=== PATIENT | female | born 1950 | race Caucasian/White ===

== ENCOUNTER → 2017-12-06 07:54 | Day surgery (SDC) | payer MEDICARE, SELFPAY ==
[2017-12-03 11:20] LABS: Bacteria 0 SEEN /hpf (None Seen); Mucous, Urine 0 SEEN /hpf (<or=2+); Red Blood Cells-Urine 0 SEEN /hpf (0-5)
--- NOTE | 2017-12-03 11:36 | RAD_ITS ---
STUDY: X-RAY CHEST REASON FOR EXAM: Female, 67 years old. PPM generator change TECHNIQUE: PA and lateral views of the chest. COMPARISON: 09/06/2013 chest x-ray FINDINGS: There is a left-sided pacemaker. There are small surgical clips adjacent to the pacemaker overlying the left axilla/left chest leads overlying right atrium and ventricle. There is no evidence of pneumothorax.. The lungs are clear and expanded. There is no demonstrated pleural abnormality. Normal size heart. Normal mediastinum and prince. Normal visualized pulmonary arteries. There is atherosclerotic calcification of the aortic arch with tortuosity. There are diffuse degenerative changes of the visualized thoracic spine. Normal visualized ribs, clavicles, and shoulders. There is no demonstrated abnormality of the visualized soft tissue structures of the upper abdomen. RAD/Chest PA and Lateral IMPRESSION: Pacemaker no evidence of acute focal infiltrate or pneumothorax. Stable chest other than surgical clips seen in the left chest. Electronically Signed: Betsy Ch MD at 22:18 EST Tel , Service support ,
[2017-12-03 12:24] LABS: Color, Urine Yellow (Yellow); Glucose, Dipstick Normal (Normal); Ketone-Dipstick Negative (Negative); Leukocyte Esterase-Dipstick 100 /ul (Negative); Nitrite-Dipstick Negative (Negative); Occult Blood-Urine Negative /ul (Negative); Protein-Dipstick Negative (Negative); Urine Bilirubin Dipstick Negative (Negative); Urine Clarity Clear (Clear); Urine Urobilinogen Normal (Normal)
[2017-12-03 12:31] LABS: Squamous Epithelial Cells - UA 0-5 SEEN /hpf (5-10); White Blood Cells 10-25 SEEN /hpf (0-5)
[2017-12-03 12:33] LABS: Hematocrit 41.3 % (37-47); Hemoglobin 14.4 g/dl (12.0-15.0); Mean Corp Hgb Conc 34.9 g/gl (32-36); Mean Corpuscular Hgb 30.3 pg (27.0-32.0); Mean Corpuscular Volume 86.8 fL (81-99); Mean Platelet Vol. 9.6 fl (6.2-12.0); Platelet Count 195 K/mm3 (150-450); Prothrombin Time (Protime)PT. 12.9 SECONDS (11.7-14.9); RBC Distribution Width CV 12.5 % (11.6-14.6); RBC Distribution Width SD 39.1 fl (35.1-43.9); Red Blood Count 4.76 M/mm3 (4.2-5.4); White Blood Count 4.6 K/mm3 (4.4-11.0)
[2017-12-03 12:39] LABS: Scan Indicated on CBC? Y/N NO
[2017-12-03 12:50] LABS: Anion Gap 5 (5-15); BUN 18 mg/dL (7-18); BUN/Creat Ratio 27.5 RATIO (10-20); Calcium,Total 9.5 mg/dL (8.5-10.1); Chloride 104 mmol/L (98-107); Creatinine, Serum 0.66 mg/dL (0.55-1.02); EST Glomerular Filtration Rate 96 mL/min (>60); Est Glom Filt Rate - Afr Amer 116 mL/min (>60); Glucose 99 mg/dL (70-110); Sodium Level 140 mmol/L (136-145)
[2017-12-05 09:48] VITALS: BMI 29.0
--- NOTE | 2017-12-06 10:00 | CL.IE_ITS ---
Patient: BETTY HAGER Study Date: 12/06/2017 Performing: Kush Collins MD : 1950 Age: 67 Gender: female PROCEDURES PERFORMED [id number] REMOVAL+REPLACEMENT PACER-DUAL LEAD INDICATIONS End-of-life replacement indicator PROCEDURE DETAILS The patient was brought to the Catheterization Lab in the postabsorptive nonsedated state. Informed consent was obtained prior to the procedure. Local anesthetic was given subcutaneously to the left joiner bclavian region with Lidocaine 2%. Incision was made to the left upper chest. PPM generator was remov ed. PPM atrial lead (existing) was checked and tested. PPM ventricular lead (existing) was checked an d tested. PPM generator was attached to the lead(s) and inserted into the pocket. Device pocket was i rrigated with antibiotic. Steri-strips applied to left subclavicular incision. Instrument, sponge, an d needle counts were noted to be normal. The patient tolerated the procedure well. Estimated Blood Loss: 25 ml's IMPLANTED / EX-PLANTED DEVICES IMPLANTED DEVICE(S): PPM Generator - [employer] Manager: [employer], Model # L111 , Serial # [id number] DEVICE PARAMETERS DEVICE PARAMETERS: Mode - DVD lower rate - 50 upper rate - 150 CONCLUSIONS / RECOMMENDATIONS Device Conclusions: Successful implantation of a dual chamber pacemaker Device Recommendations: Follow up with Primary Care Physician PROCEDURE MEDICATIONS Fentanyl 50 mcg IV Versed 1 mg IV Versed 1 mg IV Oxygen: 2 L/min via nasal cannula Antibiotic given in appropriate timeframe. Ancef 2 Gm IV @ 12/06/2017 08:54:28 Signed By Kush Collins MD On 12/06/2017 09:59:56 Kush Collins MD
== END ==
PROVIDERS: Family Provider Student in an Organized Health Care Education/Training Program; PCP Student in an Organized Health Care Education/Training Program; Visit Provider Internal Medicine Cardiovascular Disease
DX: Z45.010 Encounter for checking and testing of cardiac pacemaker pulse generator [battery] (principal); I47.1 Supraventricular tachycardia; E11.9 Type 2 diabetes mellitus without complications; C50.912 Malignant neoplasm of unspecified site of left female breast; I44.2 Atrioventricular block, complete; Z96.651 Presence of right artificial knee joint; Z79.899 Other long term (current) drug therapy
CPT/HCPCS: 33228; 36415; 71046; 80048; 81001; 85027; 85610; 99152; 99153; J7040; J7050

== ENCOUNTER → 2018-03-13 10:43 | Outpatient (CLI) | payer MEDICARE, SELFPAY ==
--- NOTE | 2018-03-13 10:43 | ECHOD_ITS ---
Reason For Study: TACHYCARDIA Procedure This was a 2D Doppler, Color Flow transthoracic echocardiogram. Exam performed in department. Left Ventricle Normal LV size. Left ventricular systolic function is normal. The estimated ejection fraction is 60 %. No evidence for diastolic dysfunction. No regional wall motion abnormalities noted. Right Ventricle Normal RV size. ICD or pacer leads identified within the right ventricle. Normal systolic function. Atria Normal left atrium. Normal right atrium. Mitral Valve Normal mitral valve. Mild (1+) eccentric mitral valve insufficiency. Tricuspid Valve Normal tricuspid valve. Mild (1+) tricuspid valve insufficiency. Pulmonary artery systolic pressure is 22 mmHg. Aortic Valve Normal aortic valve. Pulmonic Valve Normal pulmonic valve. Great Vessels Normal aortic root. The pulmonary artery is normal size. Normal inferior vena cava. Pericardium/Pleural No pericardial effusion. MMode/2D Measurements & Calculations LVIDd: 4.7 cm IVSd: 0.89 cm Ao root diam: 3.2 cm LVIDs: 3.0 cm LVPWd: 0.94 cm RVDd: 3.3 cm FS: 34.6 % LAV(MOD-bp): 22.2 ml EDV(MOD-sp4): 71.7 ml SV(MOD-sp4): 47.2 ml LAV(MOD-bp) Indexed: 11.6 ml/m2 ESV(MOD-sp4): 24.5 ml LAV(MOD-sp2): 23.1 ml EF(MOD-sp4): 65.9 % LAV(MOD-sp4): 18.3 ml LA A4 area: 9.5 cm2 RA A4 area: 8.8 cm2 Time Measurements MV dec time: 0.24 sec Doppler Measurements & Calculations MV E max morgan: 89.6 cm/sec Lat Peak E' Morgan: 6.5 cm/sec Med Peak E' Morgan: 5.2 cm/sec MV A max morgan: 95.0 cm/sec E/E' lat: 13.7 E/E' med: 17.3 MV E/A: 0.94 Ao V2 max: 113.9 cm/sec LV V1 max: 100.7 cm/sec PA V2 max: 95.4 cm/sec Ao max P.2 mmHg LV V1 max P.1 mmHg TR max morgan: 216.8 cm/sec TR max P.0 mmHg Interpretation Summary Normal LV size. Left ventricular systolic function is normal. The estimated ejection fraction is 60 %. No evidence for diastolic dysfunction. Mild (1+) eccentric mitral valve insufficiency. Mild (1+) tricuspid valve insufficiency. Ordering Physician: Kush Collins Referring Physician: GLEN NESS Performed By: Betsy Sterling RDCS
== END ==
PROVIDERS: Family Provider Student in an Organized Health Care Education/Training Program; PCP Student in an Organized Health Care Education/Training Program; Visit Provider Internal Medicine Cardiovascular Disease
DX: I47.1 Supraventricular tachycardia (principal)
CPT/HCPCS: 93306

== ENCOUNTER → 2018-08-15 10:10 | Outpatient (CLI) | payer MEDICARE, SELFPAY ==
--- NOTE | 2018-08-15 10:45 | MRI_ITS ---
STUDY: MRI LEFT FOREFOOT WITHOUT CONTRAST REASON FOR EXAM: Female, 67 years old. Pain. Fall one month ago. Plantar plate tear. TECHNIQUE: Standardized fat and water weighted pulse sequences were obtained in all 3 orthogonal planes. COMPARISON: None. FINDINGS: There is degenerative arthrosis of the metatarsophalangeal joint of the hallux. There is a bipartite tibial sesamoid. Normal interphalangeal joint of the hallux. Normal proximal and distal phalanges of the great toe. Normal medial and lateral heads of the flexor hallucis brevis tendons. Normal flexor and extensor hallucis longus tendons. There is heterogeneous signal with partial plantar plate tear at the third and fourth metatarsophalangeal (MTP) joints, series 5 and 6 images 19/36 and 21/36. Normal interphalangeal joints of the second through fifth toes. Marrow edema with nondisplaced fractures of the base of the third and fourth proximal phalanges, series 7 image 15/32. Marrow edema in the third and fourth metatarsal head. Normal first through fourth intermetatarsal spaces. Normal flexor and extensor tendons of the second through fifth toes. Normal intrinsic muscles of the forefoot. There is no demonstrated soft tissue mass or fluid collection. MRI/Lower Ext/No Jt/w/o IMPRESSION: Nondisplaced fractures of the base of the third and fourth proximal phalanges. Bone bruising of the third and fourth metatarsal heads. Partial plantar plate tear at the third and fourth MTP joints. Electronically Signed: Humberto Everett MD at 12:33 EDT , Service support ,
== END ==
PROVIDERS: Family Provider Student in an Organized Health Care Education/Training Program; PCP Student in an Organized Health Care Education/Training Program; Visit Provider Podiatrist Foot & Ankle Surgery
DX: S92.902A Unspecified fracture of left foot, initial encounter for closed fracture (principal)
CPT/HCPCS: 73718

== ENCOUNTER → 2020-01-29 09:12 | Outpatient (CLI) | payer MEDICARE, SELFPAY ==
[2020-01-29 09:07] VITALS: BMI 29.0
--- NOTE | 2020-01-29 09:12 | RAD_ITS ---
STUDY: X-RAY CHEST REASON FOR EXAM: Female, 69 years old. EPISODE DYSPNEA THIS MORNING, COUGH X COUPLE MONTHS TECHNIQUE: PA and lateral views of the chest. COMPARISON: Comparison is made with prior examination dated December 03, 2017. FINDINGS: Surgical clips are seen in the left axillary region. The lungs are clear and expanded. Scattered calcified granulomas. There is no demonstrated pleural abnormality. Normal size heart. A left-sided dual-chamber pacemaker is seen. Normal mediastinum and prince. Normal visualized pulmonary arteries. There is atherosclerotic calcification of the aortic arch with tortuosity. There are diffuse degenerative changes of the visualized thoracic spine. Normal visualized ribs, clavicles, and shoulders. There is no demonstrated abnormality of the visualized soft tissue structures of the upper abdomen. RAD/Chest PA and Lateral IMPRESSION: No acute abnormality is seen. Electronically Signed: Nikita Gonzales, at 9:45 EST , Service support ,
== END ==
PROVIDERS: PCP Student in an Organized Health Care Education/Training Program; Referring Provider Physician Assistant Surgical; Visit Provider Physician Assistant Surgical
DX: J20.9 Acute bronchitis, unspecified (principal)
CPT/HCPCS: 71046

== ENCOUNTER → 2020-09-21 08:22 | Outpatient (CLI) | payer MEDICARE, SELFPAY ==
[2020-07-05 14:48] VITALS: BMI 29.0
--- NOTE | 2020-09-21 08:27 | RAD_ITS ---
STUDY: X-RAY - ESOPHAGUS (BARIUM SWALLOW) WITH FLUOROSCOPY REASON FOR EXAM: Female, 69 years old. COUGH WITH FOOD AND WATER, DIFFICULTY SWALLOWING PILLS. TECHNIQUE: 12 view(s) of the esophagus were obtained following swallowing of barium. FLUOROSCOPY TIME (if supplied): (0:30) minutes/seconds COMPARISON: None. FINDINGS: There is no demonstrated esophageal foreign body. Tertiary contractions of the distal portion of the esophagus. Normal gastroesophageal junction, without a demonstrated hiatal hernia. The patient ingested a 12 mm tablet at bedtime without any difficulty. There is atherosclerotic tortuosity of the aortic arch and descending thoracic aorta. Normal visualized pulmonary parenchyma. Normal visualized osseous structures of the thorax. RAD/Esophagus Single Contrast IMPRESSION: Tertiary contractions in the distal third of the esophagus. Electronically Signed: Nikita Gonzales, at 15:40 EDT , Service support ,
== END ==
PROVIDERS: PCP Student in an Organized Health Care Education/Training Program; Referring Provider Nurse Practitioner Adult Health; Visit Provider Nurse Practitioner Adult Health
DX: R05 Cough (principal)
CPT/HCPCS: 74220

== ENCOUNTER 2020-09-29 05:29 | Day surgery (SDC) | payer MEDICARE, SELFPAY ==
[2020-09-22 08:54] VITALS: BMI 28.2
[2020-09-29] VITALS (7 sets, daily range): BP systolic 120–142; BP diastolic 59–79; PULSE 66–76; RESP 16–18; TEMP 36.1–36.7; O2SAT 95–100; BMI 27.7
--- NOTE | 2020-09-29 05:54 | PCM.HP.BLA ---
Problem List (1) Gastroesophageal reflux disease Status: Acute Qualifiers: (2) Diverticulitis Status: Acute History and Physical Date of Admission: 09/29/20 Intake Visit Reasons: ABDOMINAL CRAMPING/ CT 09/13 Chief Complaint: Lower abdominal pain and dysphagia Blender Helper Required: No Is patient in pain?: No (lower abdominal pain on/off) Allergies theophylline Allergy (Verified 09/22/20 08:54) Swelling fexofenadine [From [place]] Adverse Reaction (Verified 09/22/20 08:54) Other Medications calcium polycarbophil 625 mg tablet 1,250 mg PO QDAY 12/02/17 [History Confirmed 07/05/20] omega-3 fatty acids 1,000 mg capsule 1,000 mg PO DAILY 02/26/19 [History Confirmed 09/22/20] cyanocobalamin (vitamin B-12) 1,000 mcg capsule 1,000 mcg PO DAILY 07/05/20 [History Confirmed 09/22/20] pyridoxine (vitamin B6) 50 mg tablet 50 mg PO DAILY 07/05/20 [History Confirmed 09/22/20] zinc acetate 50 mg (zinc) capsule 50 mg PO DAILY 07/05/20 [History Confirmed 09/22/20] amoxicillin 875 mg-potassium clavulanate 125 mg tablet 1 tab PO BID tab 09/22/20 [History Confirmed 09/22/20] [facility] Medical History (Updated 09/22/20 @ 10:[address] Nahid Earl MD) Diverticulitis (Acute) Constipation (Acute) Hemorrhoids (Acute) Nausea (Acute) Cough (Acute) Fatigue (Acute) Hx of breast cancer (Acute) Dysphagia (Acute) Lower abdominal pain (Acute) Scoliosis (Acute) Type 2 diabetes mellitus (Chronic) Segmental and somatic dysfunction of thoracic region (Chronic) Segmental and somatic dysfunction of lumbar region (Chronic) Segmental and somatic dysfunction of cervical region (Chronic) Degenerative disc disease, cervical (Chronic) Arthritis (Chronic) History of hemorrhoids (Chronic) Heart disease (Chronic) Knee pain (Chronic) Back pain (Chronic) Back pain (Chronic) Segmental and somatic dysfunction of lumbar region (Acute) Segmental and somatic dysfunction of thoracic region (Acute) Segmental and somatic dysfunction of cervical region (Acute) DDD (degenerative disc disease), cervical (Chronic) Back pain (Acute) Complete heart block (Chronic) Paroxysmal SVT (supraventricular tachycardia) (Resolved) Carcinoma of left breast (Chronic 2012) Pacemaker at end of battery life (Resolved) Palpitations (Resolved) Surgical History (Updated 09/22/20 @ 08:52 by Sheri Khan) Hx of colonoscopy (Acute) History of tonsillectomy (Chronic) History of cardiac radiofrequency ablation (Chronic 12/08/01) History of tubal ligation (Chronic) History of lumpectomy of left breast (Chronic) History of permanent cardiac pacemaker placement (Chronic 12/06/17) Family History (Updated 09/22/20 @ 08:53 by Sheri Khan) Father Diabetes Kidney disease Heart disease Mother Diabetes Arthritis Thyroid disorder Brother Diabetes Sister Diabetes Arthritis Seizures Social History (Updated 09/22/20 @ 10:[address] Nahid Earl MD) Smoking Status: Former smoker quit date: 12/17/79 how long ago did patient quit smokin12/17/1979 second hand exposure: No alcohol intake: current alcohol intake frequency: 0-2 drinks per day Alcohol type: beer, wine substance use type: does not use caffeine: Yes what type of physical activity do you participate in: walking, bicycling, aerobics, weight training frequency: 3-4 times per week duration: 15-30 minutes/day seatbelt use: always do you feel safe at home: Yes HPI HPI HPI: BETTY HAGER, is a 70 F who presents to the office today for surgical consultation actually regarding a variety of GI issues. The patient is referred by Jeanette Romero CNP and a written copy of my surgical consult and recommendations were returned to her as well as forwarded on to Dr. Richard Castillo. 70-year-old female. Since August 11 she has had crampy abdominal pain particularly in the low abdomen. She also over a much longer period of time has had problems with what sounds like reflux and a chronic cough. Apparently this becomes quite severe postprandially. She is at this point interested in additional evaluation and management. I have previously assisted her December 01, 2010 with a colonoscopy done for rectal bleeding. That was unremarkable at that time. September 21, 2020 as noted below she had a esophagram [facility] suggesting tertiary contractions. A hiatal hernia was not felt to be demonstrated. However September 13, 2020 at the [facility] she had a CT scan of the abdomen to evaluate her crampy abdominal pain. Findings suggested probable sigmoid diverticulitis however could not exclude colitis or neoplasm and follow-up colonoscopy was recommended. She was noted to have cholelithiasis and a hiatal hernia and fecal retention on the study as well. The patient states she was initially prescribed ciprofloxacin metronidazole however upon reading the side effects of Cipro she declined that medication. She suggests she was then prescribed amoxicillin as a replacement. She states that she has been taking that for approximately 5 days and fortunately there is improvement in her crampy abdominal pain and left lower quadrant pressure sensation. She currently denies bright red blood per rectum or melena. She has not noticed any fever chills cough shortness of breath. She denies any history of DVT. [facility] Imaging Services [address] [place] [address] Esophagus Single Contrast MR#: [id number]:[id number] Name: Madina HAGER #:[id number] : 1950F [id number] From: Nikita Gonzales MD PCP:Dr. Richard Castillo, DO Status:REG CLI Study:Esophagus Single Contrast Date of Exam:09/21/20 Exam#[id number] Ordering Dr: Patricia Romero PERSONAL INJURY PARALEGAL PERSONAL INJURY PARALEGAL-C STUDY: X-RAY - ESOPHAGUS (BARIUM SWALLOW) WITH FLUOROSCOPY REASON FOR EXAM: Female, 69 years old. COUGH WITH FOOD AND WATER, DIFFICULTY SWALLOWING PILLS. TECHNIQUE: 12 view(s) of the esophagus were obtained following swallowing of barium. FLUOROSCOPY TIME (if supplied): (0:30) minutes/seconds COMPARISON: None. FINDINGS: There is no demonstrated esophageal foreign body. Tertiary contractions of the distal portion of the esophagus. Normal gastroesophageal junction, without a demonstrated hiatal hernia. The patient ingested a 12 mm tablet at bedtime without any difficulty. There is atherosclerotic tortuosity of the aortic arch and descending thoracic aorta. Normal visualized pulmonary parenchyma. Normal visualized osseous structures of the thorax. RAD/Esophagus Single Contrast IMPRESSION: Tertiary contractions in the distal third of the esophagus. Electronically Signed: Nikita Gonzales, at 15:40 EDT , Service support , HPI HPI HPI: BETTY HAGER, is a 70 F who presents to the office today for ROS General General: Yes fatigue and breast cancer; no weight change, appetite, colon cancer or weakness HEENT HEENT: Yes difficulty swallowing; no eye injury, eye surgery, swollen glands or hoarseness Endo Endocrine: Yes diabetes mellitus; no thyroid disease, thyroid cancer, Hair loss, heat intolerance or cold intolerance Skin Skin: No rash or changing moles Musc Musculoskeletal: Yes back problems and arthritis; no rheumatoid arthritis, gout or joint pain Cardio Cardiovascular: Yes pacemaker and heart disease; no murmur, atrial fibrillation, high blood pressure, heart attack, heart stent, palpitations, shortness of breat with exertion or chest pain Psych Psychiatric: No depression, anxiety or hearing voices Resp Respiratory: No shortness of breath, No sleep apnea, Yes cough, No COPD, No asthma, No emphysema, No wheezing Gastro Gastrointestinal: Yes abdominal pain, Yes nausea or vomiting, No diarrhea, No constipation, No blood in stool, No acid reflux, Yes hemorrhoids, No ulcers, No gallbladder problem, No black,tarry stools Gilberto Hematologic: No blood thinners, No blood disorders, No bleeding, No anemia, No blood clots Neuro Neurologic: No system reviewed and no additional complaints, except as docu, No as per HPI, No abnormal walking, No abnormal hearing, No abnormal movements, No abnormal speech, No behavioral changes, No burning sensations, No confusion, No seizure-like activity, No unsteadiness, No dizziness, No localized weakness, No frequent falls, No headache(s), No lack of coordination, No loss of vision, No memory loss, Yes numbness, No other visual disturbances, No radiating pain, No restless legs, No sensory deficit, No fainting, Yes tingling, No tremor(s), No weakness, No other Exam Const General: cooperative, healthy appearing, comfortable, no acute distress Nutritional Appearance: average body habitus Orientation: alert, awake [facility] Head: normal to inspection Eyes General: appearance normal, both eyes and all related structures Chest Chest palpation & inspection: normal inspection of the chest Resp Effort & Inspection: normal respiratory effort Auscultation: clear to auscultation bilaterally Cardio Rate: regular rate Rhythm: regular rhythm Heart Sounds: no murmurs GI Palpation: soft, no hepatosplenomegaly Auscultation: normal bowel sounds Musc Cervical Spine: normal cervical lordosis Skin General: no rashes or lesions noted Neuro Cognition: normal cognition Extrem General: no calf tenderness Psych Affect: normal affect Assessment & Plan Problems 1. Diverticulitis K57.92 2. Gastroesophageal reflux disease, unspecified whether esophagitis present K21.9 Plan 2 separate issues today at hand. 1 is a much more long-term history of coughing and postprandial exacerbation of symptoms. A barium swallow suggest tertiary contractions of the esophagus without hiatal hernia however a CT scan demonstrates hiatal hernia. I suspect that this 70-year-old female has had chronic hiatal hernia and reflux issues causing her chronic coughing symptoms. She may very well be a candidate for surgical intervention. I propose for her a esophagogastroduodenoscopy with biopsy or polypectomy as indicated. I additionally recommend to her esophageal manometry. This is in part based upon her esophagram suggesting tertiary contractions. Moreover it would be beneficial to considering whether she would have surgical treatment options. I recommended the patient a colonoscopy with possible biopsy or polypectomy as indicated. Concern is that she has diverticulitis or focal colitis though of course malignancy cannot be excluded. She is currently 5 days into her oral antibiotic with improvement. We will schedule the a combined upper and lower procedure approximately 2 weeks out allowing her further time to resolve. She has had an opportunity to ask and have questions answered. I very much appreciate the kind opportunity of us assisting with her surgical care. Copy: Patricia Romero CNP and Dr. Richard Earl M.D., F.A.C.S. Orders Orders: Colonoscopy Today EGD Today Esophageal Manometry Today K21.9, K44.9 Plan Detail Goals Decrease pain and spasm Decrease inflammation Barriers Scoliosis Coding Level of Care Code 71726 Diagnoses Diverticulitis K57.92 Gastroesophageal reflux disease, unspecified whether esophagitis present K21.9 ??Esophagitis presence: esophagitis presence not specified I have re-examined the patient. There are no clinical changes since date of exam. Procedure Criteria Procedure Type: Elective COVID Risk Discussion: The surgeon/proceduralist and patient have discussed in detail the risk of exposure to and/or potential harm posed by the COVID-19 virus with having a surgery/procedure at this time versus the risk of delaying the surgery/procedure. It is not possible to know either the risk of delaying the surgery or procedure or chance of getting an infection with perfect accuracy, but a joint decision was made between the patient and the surgeon/proceduralist to proceed at this time with the scheduled surgery/procedure as indicated on the consent form.
[2020-09-29] MEDS: Lactated Ringers 1,000 ML 100 ML IV (06:02)
--- NOTE | 2020-09-29 06:30 | EGD_PTH ---
PATIENT: BETTY HAGER LOC: [facility] U#:[id number] AGE/SX: 70/F ROOM: RE09/29/[address]: Dr. Nahid Earl MD : 1950 BED: DIS: 09/29/2020 SPEC #: [id number] RECD: 09/29/20 08:21 STATUS: ILDA REGaurav #: [id number] PATRICK: 09/29/20 06:[address]: Nahid Earl DEPT: SURGICAL PATHOLOGY RECD BY: Yadi Smith ENTERED: 09/29/20 09:00 SP TYPE: EGD BIOPSY OTHR DR: Dr. Richard Castillo DO Tissues: A - Duodenum, NOS B - Gastric mucous membrane C - Gastric mucous membrane D - Transverse colon E - Transverse colon F - Sigmoid colon biopsy Procedures: Special Stain Group II Surgery Specimen Level IV Alcian Blue/PAS (control) HEADER OPERATION: Colonoscopy, EGD ([facility] [place]) PRE-OP DIAGNOSIS: Diverticulitis, GERD, esophagitis TISSUE SUBMITTED: A - Duodenum biopsy, B - Antrum biopsy for histo and H. pylori, C - EG junction biopsy, D - Proximal transverse polyp biopsy, E - Mid transverse polyp biopsy, F - Mid sigmoid swollen mucosa biopsy MICROSCOPIC DIAGNOSIS A. Duodenum, biopsy: A fragment of small intestinal mucosa, no pathologic diagnosis. B. Antrum, biopsy: Mild gastritis. See microscopic description and comment. C. EG junction, biopsy: Fragments of gastroesophageal mucosa with moderate chronic inflammation and changes consistent with gastroesophageal reflux disease. Intestinal metaplasia (goblet cell metaplasia) is not identified. See comment. D. Proximal transverse colon polyp, biopsy: Fragments of colonic mucosa with focal tubular adenomatous changes. E. Mid transverse colon polyp, biopsy: Hyperplastic polyp. F. Mid sigmoid swollen mucosa, biopsy: Fragments of colonic mucosa, no pathologic diagnosis. SJ:bernarda 09/30/20 COMMENT B. The results of immunohistochemistry for Helicobacter pylori will be reported separately ([id number]). C. Alcian blue/PAS stain with matched control is used in the evaluation of the specimen. MICROSCOPIC DESCRIPTION Slides are reviewed. B. The specimen shows fragments of gastric mucosa with chronic inflammatory cell infiltrates in the lamina propria consisting of lymphocytes and plasma cells, consistent with mild chronic gastritis. GROSS DESCRIPTION A - Received in fixative is one container labeled with the patient's name and designated duodenum biopsy. The specimen consists of one irregular fragment of light colindres soft tissue that measures 0.2 x 0.2 x 0.1 cm. The specimen is totally submitted in one cassette. B - Received in fixative is one container labeled with the patient's name and designated antrum biopsy. The specimen consists of one irregular fragment of light colindres soft tissue that measures 0.6 x 0.2 x 0.1 cm. The specimen is totally submitted in one cassette. C - Received in fixative is one container labeled with the patient's name and designated EG junction. The specimen consists of multiple irregular fragments of light colindres soft tissue that in aggregate measure 1.2 x 0.2 x 0.1 cm. The specimen is totally submitted in one cassette. D - Received in fixative is one container labeled with the patient's name and designated proximal transverse. The specimen consists of two irregular fragments of light colindres soft tissue that in aggregate measure 0.5 x 0.3 x 0.1 cm. The specimen is totally submitted in one cassette. E - Received in fixative is one container labeled with the patient's name and designated mid transverse. The specimen consists of one irregular fragment of light colindres soft tissue that measures 0.3 x 0.3 x 0.3 cm. The specimen is totally submitted in one cassette. F - Received in fixative is one container labeled with the patient's name and designated mid sigmoid swollen mucosa biopsy. The specimen consists of two irregular fragments of light colindres soft tissue that in aggregate measure 0.7 x 0.6 x 0.1 cm. The specimen is totally submitted in one cassette. / AM:bernarda 09/29/20 TC:3 CPT: 47997 x6, 77385
--- NOTE | 2020-09-29 06:30 | IMM_PTH ---
PATIENT: BETTY HAGER LOC: [facility] U#:[id number] AGE/SX: 70/F ROOM: RE09/29/[address]: Dr. Nahid Earl MD : 1950 BED: DIS: 09/29/2020 SPEC #: [id number] RECD: 09/29/20 09:34 STATUS: ILDA REQ #: [id number] PATRICK: 09/29/20 06:[address]: Nahid Earl DEPT: IMMUNOHISTOCHEMISTRY RECD BY: Sabine Hall ENTERED: 09/29/20 09:35 SP TYPE: IMMUNO OTHR DR: Dr. Richard Castillo DO Tissues: B - Stomach, NOS Procedures: H Pylori (initial) PHYSICIAN & INSTITUTION [place] [address] SPECIMEN INFORMATION: Tissue Source: B - Antrum biopsy Clinical Info: GERD, diverticulitis, esophagitis Specimen Number: [id number] CPT code: 74408 METHODOLOGY: Deparaffinized sections of prefer/formalin-fixed tissue or PAP/DQ stained slides are incubated with monoclonal/polyclonal antibodies/oligonucleotide probes. Localization is made via biotin free immunoperoxidase method. Appropriate controls are performed and reacted as expected. Results on target cell population are indicated in the following table: RESULTS: ANTIBODY / CLONE RESULT Block B H Pylori (polyclonal) negative These tests were developed and their performance characteristics determined by [facility]. They may not have been cleared or approved by the U.S. Food and Drug Administration. The FDA has determined that such clearance or approval is not necessary. INTERPRETATION: B. Antrum biopsy: Negative for Helicobacter pylori organisms. SJ:bernarda 09/30/20
--- NOTE | 2020-09-29 06:30 | EGD_PTH ---
PATIENT: BETTY HAGER LOC: [facility] U#:[id number] AGE/SX: 70/F ROOM: RE09/29/[address]: Dr. Nahid Earl MD : 1950 BED: DIS: 09/29/2020 SPEC #: [id number] RECD: 09/29/20 08:21 STATUS: ILDA REGaurav #: [id number] PATRICK: 09/29/20 06:[address]: Nahid Earl DEPT: SURGICAL PATHOLOGY RECD BY: Yadi Smith ENTERED: 09/29/20 09:00 SP TYPE: EGD BIOPSY OTHR DR: Dr. Richard Castillo DO Tissues: A - Duodenum, NOS B - Gastric mucous membrane C - Gastric mucous membrane D - Transverse colon E - Transverse colon F - Sigmoid colon biopsy Procedures: Special Stain Group II Surgery Specimen Level IV Alcian Blue/PAS (control) HEADER OPERATION: Colonoscopy, EGD ([facility] [place] PRE-OP DIAGNOSIS: Diverticulitis, GERD, esophagitis TISSUE SUBMITTED: A - Duodenum biopsy, B - Antrum biopsy for histo and H. pylori, C - EG junction biopsy, D - Proximal transverse polyp biopsy, E - Mid transverse polyp biopsy, F - Mid sigmoid swollen mucosa biopsy MICROSCOPIC DIAGNOSIS A. Duodenum, biopsy: A fragment of small intestinal mucosa, no pathologic diagnosis. B. Antrum, biopsy: Mild gastritis. See microscopic description and comment. C. EG junction, biopsy: Fragments of gastroesophageal mucosa with moderate chronic inflammation and changes consistent with gastroesophageal reflux disease. Focal intestinal metaplasia (goblet cell metaplasia) noted. Negative for dysplasia. See comment. D. Proximal transverse colon polyp, biopsy: Fragments of colonic mucosa with focal tubular adenomatous changes. E. Mid transverse colon polyp, biopsy: Hyperplastic polyp. F. Mid sigmoid swollen mucosa, biopsy: Fragments of colonic mucosa, no pathologic diagnosis. SJ:bernarda 09/30/20 SJ:bernarda 10/11/20 COMMENT B. The results of immunohistochemistry for Helicobacter pylori will be reported separately ([id number]). C. Alcian blue/PAS stain with matched control is used in the evaluation of the specimen. Case has been reviewed in consultation with Dr. Alonzo who concurs with the above diagnosis. IDC:AM MICROSCOPIC DESCRIPTION Slides are reviewed. B. The specimen shows fragments of gastric mucosa with chronic inflammatory cell infiltrates in the lamina propria consisting of lymphocytes and plasma cells, consistent with mild chronic gastritis. GROSS DESCRIPTION A - Received in fixative is one container labeled with the patient's name and designated duodenum biopsy. The specimen consists of one irregular fragment of light colindres soft tissue that measures 0.2 x 0.2 x 0.1 cm. The specimen is totally submitted in one cassette. B - Received in fixative is one container labeled with the patient's name and designated antrum biopsy. The specimen consists of one irregular fragment of light colindres soft tissue that measures 0.6 x 0.2 x 0.1 cm. The specimen is totally submitted in one cassette. C - Received in fixative is one container labeled with the patient's name and designated EG junction. The specimen consists of multiple irregular fragments of light colindres soft tissue that in aggregate measure 1.2 x 0.2 x 0.1 cm. The specimen is totally submitted in one cassette. D - Received in fixative is one container labeled with the patient's name and designated proximal transverse. The specimen consists of two irregular fragments of light colindres soft tissue that in aggregate measure 0.5 x 0.3 x 0.1 cm. The specimen is totally submitted in one cassette. E - Received in fixative is one container labeled with the patient's name and designated mid transverse. The specimen consists of one irregular fragment of light colindres soft tissue that measures 0.3 x 0.3 x 0.3 cm. The specimen is totally submitted in one cassette. F - Received in fixative is one container labeled with the patient's name and designated mid sigmoid swollen mucosa biopsy. The specimen consists of two irregular fragments of light colindres soft tissue that in aggregate measure 0.7 x 0.6 x 0.1 cm. The specimen is totally submitted in one cassette. / AM:bernarda 09/29/20 TC:3 CPT: 98367 x6, 02215
--- NOTE | 2020-09-29 07:09 | OP.CCLET_ITS ---
09/29/2020 Richard Castillo [address] [place] [phone] Re : Upper GI endoscopy procedure for Fauzia Pierre Dear Dr. Castillo This procedure was performed on September. My impressions and recommendations are as follows: Impressions : - Z-line irregular, 38 cm from the incisors. Biopsied. - LA Grade A reflux esophagitis. - Medium-sized hiatal hernia. - Normal stomach. Antrum Biopsied. - Normal examined duodenum. Biopsied. Recommendations : - Discharge patient to home. - Resume previous diet. - Continue present medications. - Use Prilosec (omeprazole) 40 mg PO daily. - Return to my office as previously scheduled. After manometry My findings are described in the full procedure note, which is enclosed. If I can be of further assistance, please feel free to contact me at Doctor phone number(s): Work: . Sincerely, Nahid Earl MD 09/29/2020 7:09:26 AM This report has been signed electronically.
--- NOTE | 2020-09-29 07:09 | OP.EGD_ITS ---
Patient Name: Fauzia Pierre Procedure Date: 09/29/2020 6:15 AM Date of : 1950 Age: 70 Procedure: Upper GI endoscopy Indications: Suspected gastro-esophageal reflux disease Providers: Nahid Earl MD Referring MD: Richard Castillo Medicines: See the Anesthesia note for documentation of the administered medications Complications: No immediate complications. Procedure: Pre-Anesthesia Assessment: - Prior to the procedure, a History and Physical was performed, and patient medications and allergies were reviewed. The patient's tolerance of previous anesthesia was also reviewed. The risks and benefits of the procedure and the sedation options and risks were discussed with the patient. All questions were answered, and informed consent was obtained. Prior Anticoagulants: The patient has taken no previous anticoagulant or antiplatelet agents. ASA Grade Assessment: II - A patient with mild systemic disease. After reviewing the risks and benefits, the patient was deemed in satisfactory condition to undergo the procedure. After obtaining informed consent, the endoscope was passed under direct vision. Throughout the procedure, the patient's blood pressure, pulse, and oxygen saturations were monitored continuously. The gastroscope was introduced through the mouth, and advanced to the second part of duodenum. The upper GI endoscopy was accomplished without difficulty. The patient tolerated the procedure well. Scope In: 6:29:56 AM Scope Out: 6:34:47 AM Total Procedure Duration Time 0 hours 4 minutes 51 seconds Findings: The Z-line was irregular and was found 38 cm from the incisors. Biopsies were taken with a cold forceps for histology. LA Grade A (one or more mucosal breaks less than 5 mm, not extending between tops of 2 mucosal folds) esophagitis with no bleeding was found 38 cm from the incisors. A medium-sized hiatal hernia was present. The entire examined stomach was normal. Biopsies were taken with a cold forceps for histology. The examined duodenum was normal. Biopsies were taken with a cold forceps for histology. Impression: - Z-line irregular, 38 cm from the incisors. Biopsied. - LA Grade A reflux esophagitis. - Medium-sized hiatal hernia. - Normal stomach. Antrum Biopsied. - Normal examined duodenum. Biopsied. Recommendation: - Discharge patient to home. - Resume previous diet. - Continue present medications. - Use Prilosec (omeprazole) 40 mg PO daily. - Return to my office as previously scheduled. After manometry Procedure Code(s): --- Professional --- 23771, Esophagogastroduodenoscopy, flexible, transoral; with biopsy, single or multiple Diagnosis Code(s): --- Professional --- K22.8, Other specified diseases of esophagus K21.0, Gastro-esophageal reflux disease with esophagitis K44.9, Diaphragmatic hernia without obstruction or gangrene CPT copyright 2017 [employer]. All rights reserved. The codes documented in this report are preliminary and upon aircraft structure mechanic review may be revised to meet current compliance requirements. Nahid Earl MD 09/29/2020 7:09:26 AM This report has been signed electronically. Number of Addenda: 0 Note Initiated On: 09/29/2020 6:15 AM
--- NOTE | 2020-09-29 07:15 | OP.CCLET_ITS ---
09/29/2020 Richard Castillo [address] [phone] Re : Colonoscopy procedure for Fauzia Pierre Dear Dr. Castillo This procedure was performed on September. My impressions and recommendations are as follows: Impressions : - Non-thrombosed internal hemorrhoids and internal hemorrhoids that prolapse with straining, but require manual replacement into the anal canal (Grade III) found on digital rectal exam. - One 4 mm polyp in the proximal transverse colon, removed with a cold biopsy forceps. Resected and retrieved. - One 4 mm polyp in the mid transverse colon, removed with a cold biopsy forceps. Resected and retrieved. - Diverticulosis in the sigmoid colon and in the descending colon. Slight swelling noted. Biopsied. - Tortuous colon. Recommendations : - Discharge patient to home. - Resume previous diet. - Continue present medications. - Repeat colonoscopy in 5 years for surveillance based on pathology results. - Return to my office as previously scheduled. My findings are described in the full procedure note, which is enclosed. If I can be of further assistance, please feel free to contact me at Doctor phone number(s): Work: . Sincerely, Nahid Earl MD 09/29/2020 7:14:46 AM This report has been signed electronically.
--- NOTE | 2020-09-29 07:15 | OP.COLON_ITS ---
Patient Name: Fauzia Pierre Procedure Date: 09/29/2020 6:35 AM Date of : 1950 Age: 70 Procedure: Colonoscopy Indications: Abdominal pain in the left lower quadrant, Abnormal CT of the GI tract Providers: Nahid Earl MD Referring MD: Richard Castillo Medicines: See the Anesthesia note for documentation of the administered medications Patient Profile: Last Colonoscopy: November 2010. Complications: No immediate complications. Procedure: Pre-Anesthesia Assessment: - Prior to the procedure, a History and Physical was performed, and patient medications and allergies were reviewed. The patient's tolerance of previous anesthesia was also reviewed. The risks and benefits of the procedure and the sedation options and risks were discussed with the patient. All questions were answered, and informed consent was obtained. Prior Anticoagulants: The patient has taken no previous anticoagulant or antiplatelet agents. ASA Grade Assessment: II - A patient with mild systemic disease. After reviewing the risks and benefits, the patient was deemed in satisfactory condition to undergo the procedure. After I obtained informed consent, the scope was passed under direct vision. Throughout the procedure, the patient's blood pressure, pulse, and oxygen saturations were monitored continuously. The Colonoscope was introduced through the anus and advanced to the cecum, identified by appendiceal orifice and ileocecal valve. The colonoscopy was somewhat difficult due to a tortuous colon. The patient tolerated the procedure well. The quality of the bowel preparation was good. The ileocecal valve and the appendiceal orifice were photographed. Scope In: 6:37:34 AM Scope Withdrawal Time 0 hours 14 minutes 14 seconds Scope Out: 7:00:13 AM Total Procedure Duration Time 0 hours 22 minutes 39 seconds Findings: The digital rectal exam findings include non-thrombosed internal hemorrhoids and internal hemorrhoids that prolapse with straining, but require manual replacement into the anal canal (Grade III). A 4 mm polyp was found in the proximal transverse colon. The polyp was sessile. The polyp was removed with a cold biopsy forceps. Resection and retrieval were complete. A 4 mm polyp was found in the mid transverse colon. The polyp was sessile. The polyp was removed with a cold biopsy forceps. Resection and retrieval were complete. Multiple diverticula were found in the sigmoid colon and descending colon. Biopsies were taken with a cold forceps for histology. The colon (entire examined portion) was significantly tortuous. Advancing the scope required changing the patient to a supine position and applying abdominal pressure. Impression: - Non-thrombosed internal hemorrhoids and internal hemorrhoids that prolapse with straining, but require manual replacement into the anal canal (Grade III) found on digital rectal exam. - One 4 mm polyp in the proximal transverse colon, removed with a cold biopsy forceps. Resected and retrieved. - One 4 mm polyp in the mid transverse colon, removed with a cold biopsy forceps. Resected and retrieved. - Diverticulosis in the sigmoid colon and in the descending colon. Slight swelling noted. Biopsied. - Tortuous colon. Recommendation: - Discharge patient to home. - Resume previous diet. - Continue present medications. - Repeat colonoscopy in 5 years for surveillance based on pathology results. - Return to my office as previously scheduled. Procedure Code(s): --- Professional --- 46772, Colonoscopy, flexible; with biopsy, single or multiple Diagnosis Code(s): --- Professional --- K64.2, Third degree hemorrhoids D12.3, Benign neoplasm of transverse colon (hepatic flexure or splenic flexure) R10.32, Left lower quadrant pain K57.30, Diverticulosis of large intestine without perforation or abscess without bleeding R93.3, Abnormal findings on diagnostic imaging of other parts of digestive tract Q43.8, Other specified congenital malformations of intestine CPT copyright 2017 [employer]. All rights reserved. The codes documented in this report are preliminary and upon compliance engineer review may be revised to meet current compliance requirements. Nahid Earl MD 09/29/2020 7:14:46 AM This report has been signed electronically. Number of Addenda: 0 Note Initiated On: 09/29/2020 6:35 AM
== END 2020-09-29 07:59 | disposition home or self-care (01) ==
LOC: EN 05:29 → AC 05:29
PROVIDERS: PCP Student in an Organized Health Care Education/Training Program; Referring Provider Student in an Organized Health Care Education/Training Program; Visit Provider Surgery
PROC: 0DJD8ZZ Inspection of Lower Intestinal Tract, Via Natural or Artificial Opening Endoscopic (ICD-10-PCS; CPT 45378; principal; 2020-09-29 06:25)
DX: K21.00 Gastro-esophageal reflux disease with esophagitis, without bleeding (principal); K57.92 Diverticulitis of intestine, part unspecified, without perforation or abscess without bleeding; Z20.828 Contact with and (suspected) exposure to other viral communicable diseases; K22.8 Other specified diseases of esophagus; Q43.8 Other specified congenital malformations of intestine; D12.3 Benign neoplasm of transverse colon; K29.50 Unspecified chronic gastritis without bleeding; K64.2 Third degree hemorrhoids; K63.5 Polyp of colon; R13.10 Dysphagia, unspecified; K44.9 Diaphragmatic hernia without obstruction or gangrene; E11.9 Type 2 diabetes mellitus without complications; Z79.899 Other long term (current) drug therapy; Z78.0 Asymptomatic menopausal state; Z87.891 Personal history of nicotine dependence; Z95.0 Presence of cardiac pacemaker
CPT/HCPCS: 43239; 45380; 87426; 88305; 88313; 88342; C9803; J7120; J2405

== ENCOUNTER 2020-10-06 07:26 | Day surgery (SDC) | payer MEDICARE, SELFPAY ==
[2020-09-22 08:54] VITALS: BMI 28.2
[2020-09-29 05:45] VITALS: BMI 27.7
[2020-10-06 07:47] VITALS: BP 146/74; PULSE 71; RESP 16; TEMP 36.8; O2SAT 100
== END 2020-10-06 08:23 | disposition home or self-care (01) ==
LOC: EN 07:29
PROVIDERS: Surgery; PCP Student in an Organized Health Care Education/Training Program; Referring Provider Student in an Organized Health Care Education/Training Program; Visit Provider Surgery
PROC: F00ZJWZ Instrumental Swallowing and Oral Function Assessment using Swallowing Equipment (ICD-10-PCS; CPT 43235; principal; 2020-10-06 07:25)
DX: R07.9 Chest pain, unspecified (principal)
CPT/HCPCS: 91010

== ENCOUNTER 2020-12-14 06:45 | Day surgery (SDC) | payer MEDICARE, SELFPAY ==
[2020-10-11 13:22] VITALS: BMI 27.9
[2020-12-09 14:35] VITALS: BMI 28.4
--- NOTE | 2020-12-09 15:22 | RAD_ITS ---
STUDY: X-RAY CHEST REASON FOR EXAM: Female, 70 years old. BATTERY CHANGE IN PACEMAKER ON 12/14/2020. TECHNIQUE: Frontal and lateral views of the chest. COMPARISON: 01/29/2020. FINDINGS: The lungs are clear and expanded. There is no demonstrated pleural abnormality. Normal size heart. Pacemaker is seen with leads terminating in the right atrium and right ventricle. Normal mediastinum and prince. Normal visualized pulmonary arteries. Normal visualized aortic arch and descending thoracic aorta. There are diffuse degenerative changes of the visualized thoracic spine. Normal visualized ribs, clavicles, and shoulders. There is no demonstrated abnormality of the visualized soft tissue structures of the upper abdomen. There are clips in the left axilla consistent with lymphadenectomy for breast cancer. RAD/Chest PA and Lateral IMPRESSION: No definite acute or significant abnormality seen. Electronically Signed: Brandon Deleon MD at 17:18 EST , Service support ,
[2020-12-09 15:31] LABS: Bacteria 0 SEEN /hpf (None Seen); Mucous, Urine 0 SEEN /hpf (<or=2+); Red Blood Cells-Urine 0 SEEN /hpf (0-5)
[2020-12-09 17:39] LABS: Hematocrit 41.5 % (37-47); Hemoglobin 13.3 g/dL (12.0-15.0); Mean Corpuscular Hgb 27.5 pg (27.0-32.0); Mean Corpuscular Volume 85.7 fL (81-99); Mean Platelet Vol. 9.5 fl (6.2-12.0); Platelet Count 234 K/mm3 (150-450); RBC Distribution Width CV 13.5 % (11.6-14.6); RBC Distribution Width SD 42.5 fl (35.1-43.9); Red Blood Count 4.84 M/mm3 (4.2-5.4)
[2020-12-09 17:51] LABS: Prothrombin Time (Protime)PT. 12.3 SECONDS (11.7-14.9)
[2020-12-09 18:04] LABS: Anion Gap 4 (5-15); BUN 18 mg/dL (7-18); BUN/Creat Ratio 24.4 RATIO (10-20); Calcium,Total 9.4 mg/dL (8.5-10.1); Chloride 106 mmol/L (98-107); Creatinine, Serum 0.74 mg/dL (0.55-1.02); EST Glomerular Filtration Rate 83 mL/min (>60); Est Glom Filt Rate - Afr Amer 100 mL/min (>60); Glucose 112 mg/dL (74-106); Potassium 3.7 mmol/L (3.5-5.1); Sodium Level 141 mmol/L (136-145)
[2020-12-09 18:06] LABS: Color, Urine Yellow (Yellow); Glucose, Dipstick 100 mg/dl (Normal); Ketone-Dipstick Negative (Negative); Leukocyte Esterase-Dipstick 100 /ul (Negative); Nitrite-Dipstick Negative (Negative); Occult Blood-Urine Negative /ul (Negative); Protein-Dipstick Negative (Negative); Urine Bilirubin Dipstick Negative (Negative); Urine Clarity Clear (Clear); Urine Urobilinogen Normal (Normal)
[2020-12-09 18:36] LABS: Squamous Epithelial Cells - UA 0-5 SEEN /hpf (5-10); White Blood Cells 0-5 SEEN /hpf (0-5)
--- NOTE | 2020-12-13 06:59 | HP_ITS ---
HPI HPI History of Present Illness Surgical H&P: Yes Details: BETTY HAGER, is a 70 F who presents to the office today for a follow-up visit. She is a lady with a history of supraventricular tachyarrhythmia status post AV anastacia pathway ablation in 2001 complicated by AV block requiring sequential pacemaker placement. She did have a pacemaker change out in 2007 as well as in 2017. She does have a history of breast carcinoma underwent lumpectomy and radiation. She was diagnosed with COVID-19 in September. Patient's device check on 10/12/2020 was reviewed with [employer] rep and after patient's Latitude remote transmissions were reviewed there was added concern for battery consumption and recommended device be changed. She is expected undergo generator change on 12/14/[address] Collins. She denies chest, arm, jaw, or neck discomfort. Her exercise tolerance is stable. She denies symptoms of CHF, palpitations, near syncope, or syncopal episodes. She denies edema or claudication issues. She denies orthopnea, PND, fever, chills, cough, blood in urine, blood in stool, epistaxis, or myalgia. She continues with fatigue. She states intermittent lightheadedness and dizziness. She states bilateral lower extremity peripheral neuropathy that she feels is worsening. She denies urinary symptoms. Intake Vital Signs 12/09/20 BP 132/70 H 12/09/20 Blood Pressure Location Lt brachial 12/09/20 Position Sitting 12/09/20 Height 5 ft 6 in 12/09/20 Weight: 176 lb 12/09/20 BMI 28.4 12/09/20 BP 149/81 H 12/09/20 Blood Pressure Location Lt brachial 12/09/20 Position Sitting 12/09/20 Respiration 18 12/09/20 Pulse 67 12/09/20 Pulse Source Monitor 12/09/20 Pulse Oximetry (%) 99 Intake Visit Reasons: update H&P for gen change Sex Worker Or Escort Required: No Accompanied by: None Is patient in pain?: No Allergies theophylline Allergy (Verified 12/09/20 14:31) Swelling fexofenadine [From Tomeka] Adverse Reaction (Verified 12/09/20 14:31) Other Medications calcium polycarbophil 625 mg tablet 1,250 mg PO QDAY 12/02/17 [History Confirmed 12/09/20] omega-3 fatty acids 1,000 mg capsule 1,000 mg PO DAILY 02/26/19 [History Confirmed 12/09/20] cyanocobalamin (vitamin B-12) 1,000 mcg capsule 1,000 mcg PO DAILY 07/05/20 [History Confirmed 12/09/20] pyridoxine (vitamin B6) 50 mg tablet 50 mg PO DAILY 07/05/20 [History Confirmed 12/09/20] zinc acetate 50 mg (zinc) capsule 50 mg PO DAILY 07/05/20 [History Confirmed 10/11/20] omeprazole 40 mg capsule,delayed release 40 mg PO DAILY cap 12/09/20 [History Confirmed 12/09/20] [facility] Medical History (Updated 11/28/20 @ 12:57 by Betty Brown) Malfunction of cardiac pacemaker battery (Acute) Complete heart block (Chronic) Paroxysmal SVT (supraventricular tachycardia) (Resolved) Carcinoma of left breast (Chronic 2012) Arthritis (Chronic) Back pain (Chronic) Constipation (Chronic) Cough (Chronic) DDD (degenerative disc disease), cervical (Chronic) Degenerative disc disease, cervical (Chronic) Diverticulitis (Chronic) Dysphagia (Chronic) Gastroesophageal reflux disease (Chronic) Hemorrhoids (Chronic) Hx of breast cancer (Chronic) Personal history of colonic polyps (Chronic) Scoliosis (Chronic) Segmental and somatic dysfunction of cervical region (Chronic) Segmental and somatic dysfunction of lumbar region (Chronic) Segmental and somatic dysfunction of thoracic region (Chronic) Type 2 diabetes mellitus (Chronic) Fatigue (Resolved) Knee pain (Resolved) Lower abdominal pain (Resolved) Nausea (Resolved) Pacemaker at end of battery life (Resolved) Palpitations (Resolved) Surgical History (Updated 11/14/20 @ 17:01 by Bibi Strickland) History of permanent cardiac pacemaker placement (Chronic 12/06/17) History of tubal ligation (Chronic) History of cardiac radiofrequency ablation (Resolved 12/08/01) History of lumpectomy of left breast (Resolved) History of tonsillectomy (Resolved) History of total right knee replacement (Resolved) Hx of colonoscopy (Resolved) Family History Father Diabetes Kidney disease Heart disease Mother Diabetes Arthritis Thyroid disorder Brother Diabetes Sister Diabetes Arthritis Seizures Social History (Updated 12/09/20 @ 15:03 by Arben Max TUMBLER TENDER, TUMBLER TENDER-C) Smoking Status: Former smoker quit date: 12/17/79 how long ago did patient quit smokin12/17/1979 second hand exposure: No alcohol intake: current alcohol intake frequency: 0-2 drinks per day Alcohol type: beer, wine substance use type: does not use caffeine: Yes what type of physical activity do you participate in: walking, bicycling, aerobics, weight training frequency: 3-4 times per week duration: 15-30 minutes/day seatbelt use: always do you feel safe at home: Yes ROS Const Const: Positive for fatigue; negative for weakness, body ache, fever(s) or chills ENT ENT: Positive for dizziness Cardio Chest Pain: No Palpitations: No Edema: None Muscle aches with walking: None Resp Respiratory: Negative for SOB with activity, SOB at rest, SOB orthopnea\SOB lying down or paroxysmal nocturnal dyspnea GI GI: Negative nausea, vomiting blood/hematemesis, bright, red blood in stools or black,tarry stools : Negative for hematuria or frequent nighttime urination/ nocturia Musc Musc: Negative for muscle aches/ myalgia Skin Skin: Negative non-healing lesions or rash Neuro Neuro: Positive for dizziness, lightheadedness and other (Neuropathy); negative for near syncope, syncope, orthostatic symptoms or weakness Endo Endo: Positive for fatigue Allergy Allergy/Immunology: Negative for rash Cardiology Exam Const Appearance: cooperative, healthy appearing, comfortable and no acute distress Nutritional Appearance: well nourished and overweight Orientation: alert, awake and oriented x3 Head Head: normal to inspection Ears: hearing grossly normal bilaterally Nose: external nose normal Face and Sinus: face symmetric Mouth: oral mucosae normal Eyes General: appearance normal, both eyes and all related structures Eyelids: eyelids normal EOM: EOM intact bilaterally Neck Neck: normal visual inspection and no JVD Carotids: normal carotid upstroke Chest Chest inspection: normal inspection of the chest, symmetric chest movement, Pacemaker/ICD Yes left pectoral incision and normal respiratory effort; negative cough Auscultation: Bilateral: Clear to Auscultation Cardio Rate: regular rate Rhythm: regular rhythm Heart sounds: S1 normal and S2 normal; negative rub, gallop or murmur GI GI: normal to inspection Neuro General: alert, awake, oriented x3 and CN's II-XI intact bilaterally Skin Skin: no rashes or lesions noted Extremities Pulses: Normal: Right Posterior Tibial Pulse, Left Posterior Tibial Pulse, Right Radial Pulse, Left Radial Pulse Lower Extremity Edema: None: Bilateral Psych Psychological: normal affect Assessment & Plan 1. Paroxysmal SVT (supraventricular tachycardia) I47.1 RFA slow pathway 12/08/2001 leading to CHB PPM 12/19/2001 Plan EKG done in office showed ventricular paced at 69 beats per minute. This appears stable. Patient's most recent pacemaker check showed 2 MS episodes and no NSVT episodes. Patient is not on any rate controlling medications. We will continue to monitor this through exam and pacemaker checks. 2. Complete heart block I44.2 Plan She is status post permanent pacemaker for this. She continue to follow with pacemaker clinic on a routine basis. 3. History of permanent cardiac pacemaker placement Z95.0 RFA 12/08/2001, CHB-PPM 12/19/2001; Gen change 10/2008, 12/06/2017 Plan Her pacemaker evaluation on 10/12/2020 showed 2 mode switch episodes, less than 1% total time, and no NSVT episodes since 07/05/2020. Stored electrogram on 09/29/2020 shows atrial flutter with appropriate mode switch for approximately 4 seconds. Stored electrogram on 07/24/2020 shows atrial far field oversensing and not true AT/AF. Ventricular paced 100%. Atrial paced 0%. Estimate battery life 3 years. Orders Orders: 12 Lead EKG performed by [facility] Today 4. Malfunction of cardiac pacemaker battery T82.191A Plan Patient will proceed with generator change. Orders Orders: 12 Lead EKG performed by [facility] Plan Detail Other Medications Changed: From: omeprazole (0 x 40 mg) PO DAILY #90 0RF To: omeprazole 40 mg PO DAILY Additional Comments Thank you for allowing us to participate in the patients plan of care, if you have any questions please do not hesitate to call. This note was generated using a voice recognition system and there may be incorrect words, spelling or punctuation that were not noted when reviewing the office note prior to saving. Goals Decrease pain and spasm Decrease inflammation Barriers Scoliosis Coding Level of Care Code Off vis,est,level 3 Diagnoses Paroxysmal SVT (supraventricular tachycardia) I47.1 Complete heart block I44.2 History of permanent cardiac pacemaker placement Z95.0 Malfunction of cardiac pacemaker battery T82.191A Coding Level of Care Code Off vis,est,level 3 Diagnoses Paroxysmal SVT (supraventricular tachycardia) I47.1 Complete heart block I44.2 History of permanent cardiac pacemaker placement Z95.0 Malfunction of cardiac pacemaker battery T82.191A Supplemental Info Supplemental Information Echocardiogram from 03/13/2018: Interpretation Summary Normal LV size. Left ventricular systolic function is normal. The estimated ejection fraction is 60 %. No evidence for diastolic dysfunction. Mild (1+) eccentric mitral valve insufficiency. Mild (1+) tricuspid valve insufficiency. Labs LDL Cholesterol 106 mg/dL (0-130) 10/05/15 HDL Cholesterol 43 mg/dL (40-) 10/05/15 Triglycerides 205 mg/dL (-199) H 10/05/15 VLDL Cholesterol 41 mg/dL (5-40) H 10/05/15 Diagnostics Electrocardiogram 12/09/20 Echocardiogram 03/13/18 Pacemaker Check 10/12/20 Chest X-Ray 01/29/20
[2020-12-13 07:29] VITALS: BMI 28.4
--- NOTE | 2020-12-14 08:32 | CL.IE_ITS ---
Patient: BETTY HAGER Study Date: 12/14/2020 Performing: Kush Collins MD : 1950 Age: 70 Gender: female PROCEDURES PERFORMED [id number] REMOVAL+REPLACEMENT PACER-DUAL LEAD INDICATIONS Atrial fibrillation and complete heart block PROCEDURE DETAILS The patient was brought to the Catheterization Lab in the postabsorptive nonsedated state. Infor med consent was obtained prior to the procedure. Local anesthetic was given subcutaneously to the le ft subclavicular region with Lidocaine 2%. Incision was made to the left subclavicular area. PPM gene rator was attached to the lead(s) and inserted into the pocket. Device pocket was irrigated with anti biotic. Subcutaneous closure was completed with 3-0 Vicryl. Skin closure was completed with 4-0 Vicry l. The patient tolerated the procedure well. Estimated Blood Loss: 10 ml's IMPLANTED / EX-PLANTED DEVICES IMPLANTED DEVICE(S): PPM Generator - Brand Executive: [employer], Model # Essentio MRI DR Pacemaker , Serial # [id number] DEVICE PARAMETERS DEVICE PARAMETERS: Mode- DDD Lower rate- 50 Upper rate- 150 CONCLUSIONS / RECOMMENDATIONS Device Conclusions: Successful implantation of a dual chamber pacemaker battery change and replacemen t Device Recommendations: Follow up with Primary Care Physician PROCEDURE MEDICATIONS Versed 1 mg IV Fentanyl 50 mcg IV Oxygen: 2 L/min via nasal cannula Antibiotic given in appropriate timeframe. Ancef 2 Gm IV @ 12/14/2020 07:25:13 Signed By Kush Collins MD On 12/14/2020 08:32:00 Kush Collins MD
== END 2020-12-14 09:58 | disposition home or self-care (01) ==
LOC: CLSP 06:46
PROVIDERS: PCP Student in an Organized Health Care Education/Training Program; Referring Provider Internal Medicine Cardiovascular Disease; Visit Provider Internal Medicine Cardiovascular Disease
DX: T82.191A Other mechanical complication of cardiac pulse generator (battery), initial encounter (principal); I47.1 Supraventricular tachycardia; I44.2 Atrioventricular block, complete; I48.91 Unspecified atrial fibrillation; I48.92 Unspecified atrial flutter; E11.40 Type 2 diabetes mellitus with diabetic neuropathy, unspecified; K21.9 Gastro-esophageal reflux disease without esophagitis; Z86.16 Personal history of COVID-19; Z85.3 Personal history of malignant neoplasm of breast; Z87.891 Personal history of nicotine dependence; Z95.0 Presence of cardiac pacemaker; Z96.651 Presence of right artificial knee joint
CPT/HCPCS: 33228; 33263; 36415; 71046; 80048; 81001; 85027; 85610; 93641; 99152; 99153; J7040; J7050

== ENCOUNTER → 2021-02-10 14:25 | Outpatient (CLI) | payer MEDICARE, SELFPAY ==
[2021-02-10 08:27] VITALS: BMI 28.4
[2021-02-10 15:49] LABS: Anion Gap 8 (5-15); BUN 15 mg/dL (7-18); BUN/Creat Ratio 16.3 RATIO (10-20); Calcium,Total 9.1 mg/dL (8.5-10.1); Chloride 103 mmol/L (98-107); Creatinine, Serum 0.92 mg/dL (0.55-1.02); EST Glomerular Filtration Rate 64 mL/min (>60); Est Glom Filt Rate - Afr Amer 77 mL/min (>60); Glucose 200 mg/dL (74-106); Potassium 3.6 mmol/L (3.5-5.1); Sodium Level 140 mmol/L (136-145)
[2021-02-10 15:51] LABS: BNP,B-Type NATRIURETIC PEPTIDE 22.8 pg/mL (0-100)
== END ==
PROVIDERS: PCP Student in an Organized Health Care Education/Training Program; Referring Provider Internal Medicine Cardiovascular Disease; Visit Provider Internal Medicine Cardiovascular Disease
DX: R06.00 Dyspnea, unspecified (principal)
CPT/HCPCS: 36415; 80048; 83880

== ENCOUNTER → 2021-03-01 07:01 | Outpatient (CLI) | payer MEDICARE, SELFPAY ==
[2021-02-10 08:27] VITALS: BMI 28.4
--- NOTE | 2021-03-01 07:04 | ECHOD_ITS ---
Version 2 Reason For Study: Dyspnea/SOB Procedure This was a 2D Doppler, Color Flow transthoracic echocardiogram. Bubble Study performed. Exam performed in department. Left Ventricle Normal LV size. Sigmoid septum. Left ventricular systolic function is normal. The estimated ejection fraction is 60 %. Stage 1 diastolic dysfunction. No regional wall motion abnormalities noted. Right Ventricle Normal RV size. ICD or pacer leads identified within the right ventricle. Normal systolic function. Atria Normal left atrium. Normal right atrium. Bubble contrast study negative for right to left interatrial shunt. Mitral Valve There is moderate to severe mitral annular calcification. Tricuspid Valve Normal tricuspid valve. Mild tricuspid valve insufficiency. Aortic Valve Normal aortic valve. Pulmonic Valve Normal pulmonic valve. Great Vessels Normal aortic root. The pulmonary artery is normal size. Normal inferior vena cava. Pericardium/Pleural No pericardial effusion. Medication 22 gauge I.V. with prn adaptor inserted into left arm. Performed a rapid injection of agitated mix of 9 cc saline and 1cc air to assess for atrial septal defect. MMode/2D Measurements & Calculations LVIDd: 3.9 cm IVSd: 1.5 cm LAV(MOD-sp2): 27.2 ml LVIDs: 1.8 cm LVPWd: 0.83 cm FS: 54.4 % Time Measurements MV dec time: 0.30 sec Doppler Measurements & Calculations MV E max morgan: 94.0 cm/sec Lat Peak E' Morgan: 8.3 cm/sec Med Peak E' Morgan: 5.2 cm/sec MV A max morgan: 103.8 cm/sec E/E' lat: 11.4 E/E' med: 18.0 MV E/A: 0.91 MV V2 max: 107.9 cm/sec MV P1/2t max morgan: 92.5 cm/sec Ao V2 max: 134.6 cm/sec MV max P.7 mmHg MV P1/2t: 100.7 msec Ao max P.2 mmHg MV V2 mean: 61.6 cm/sec MV mean P.8 mmHg MV dec slope: 268.9 cm/sec2 MV V2 VTI: 33.8 cm MVA(P1/2t): 2.2 cm2 LV V1 max: 117.4 cm/sec PA V2 max: 85.7 cm/sec TR max morgan: 242.0 cm/sec LV V1 max P.5 mmHg TR max P.4 mmHg ECHO/Echo Complete Interpretation Summary Normal LV size. Left ventricular systolic function is normal. The estimated ejection fraction is 60 %. Bubble contrast study negative for right to left interatrial shunt. ICD or pacer leads identified within the right ventricle. Stage 1 diastolic dysfunction. Sigmoid septum. Ordering Physician: Kush Collins Referring Physician: Richard Castillo Performed By: Som Denny RCS
--- NOTE | 2021-03-01 18:39 | STRESSREP ---
Stress Test Report Exercise myocardial perfusion stress test. 70-year-old lady with a history of chest pain. Stress protocol: Resting EKG demonstrates normal sinus rhythm with a left bundle branch block pattern from paced activity. Heart rate of 60 bpm is noted. Resting blood pressure is 140/78 mmHg. The patient exercised according to the regular Samm protocol for total duration of 8 minutes. The patient completed 2 minutes into stage III of the Samm protocol. The maximum heart rate attained was 141 bpm which was 94% of max impacted heart rate the maximum workload was 10 metabolic equivalents. At rest there were no ST or T wave changes noted to suggest ischemia left bundle branch block pattern was noted. At peak exercise no ST or T wave changes were noted to suggest ischemia. The test was terminated due to dyspnea. The peak blood pressure was noted to be 220/78 mmHg. Myocardial perfusion protocol. 10.8 mCi of technetium 99m sestamibi was injected at rest. The patient exercised according to regular Samm protocol for 8 minutes and at peak exercise 33.3 mCi of technetium 99m sestamibi was injected stress images were obtained stress and rest images were reconstructed and compared in the short axis vertical long horizontal long axis. Gated images were also obtained Perfusion SPECT analysis: Review of the stress images demonstrated normal uptake of tracer noted in all areas of the myocardium. The resting images similarly demonstrate normal uptake of tracer noted in all areas of the myocardium. No areas of reversibility are noted to suggest ischemia and no previous infarct is noted. Gated SPECT analysis: The gated ejection fraction is 78%. Conclusion: Exercise stress test with no evidence of ischemia at a high workload. Left bundle branch block paced rhythm is noted. Good functional aerobic capacity noted.
== END ==
PROVIDERS: PCP Student in an Organized Health Care Education/Training Program; Referring Provider Internal Medicine Cardiovascular Disease; Visit Provider Internal Medicine Cardiovascular Disease
DX: I44.2 Atrioventricular block, complete (principal); R06.02 Shortness of breath; R06.09 Other forms of dyspnea
CPT/HCPCS: 78452; 93017; 93306; A9500; A4216

== ENCOUNTER → 2021-08-27 | Outpatient (CLI) | payer MEDICARE, SELFPAY | END | disposition home or self-care (01) | PROVIDERS: PCP Student in an Organized Health Care Education/Training Program; Referring Provider Physician Assistant; Visit Provider Physician Assistant | DX: J02.9 Acute pharyngitis, unspecified (principal) | CPT/HCPCS: 87635; U0005; U0003 ==

== ENCOUNTER 2021-10-29 20:43 | Emergency (ER) | payer MEDICARE, SELFPAY ==
[2021-10-29 20:44] VITALS: BP 167/81; PULSE 83; RESP 16; TEMP 36.4; O2SAT 100; BMI 27.4
[2021-10-29 20:45] VITALS: BP 167/81; PULSE 83; RESP 16; TEMP 36.4; O2SAT 100
--- NOTE | 2021-10-29 21:03 | EDS_ITS ---
HPI History of Present Illness Chief Complaint: Edema Informant: patient Narrative Narrative: Patient is a 71-year-old female with history of neuropathy, diabetes mellitus, GERD and complete heart block presenting with left lower leg pain, redness and swelling. She notes she started noticing it yesterday but does not recall a particular injury. She thinks she might of ran into something but is not sure. She is increased swelling today and then did 3 hours of yard work. This made it worse. She came in for further evaluation. She denies any new numbness. She denies any fever, chills, chest pain, shortness of breath or any other systemic symptoms. Denies any history of MRSA but does report a history of cellulitis from a cat bite of the hand and subsequent bacteremia. [facility] Medical History Arthritis Back pain Carcinoma of left breast (2012) Complete heart block Constipation Cough COVID-19 virus detected (09/2020) DDD (degenerative disc disease), cervical Degenerative disc disease, cervical Diverticulitis Dysphagia Fatigue Gastroesophageal reflux disease Hemorrhoids Hx of breast cancer Knee pain Lower abdominal pain Malfunction of cardiac pacemaker battery Nausea Pacemaker at end of battery life Palpitations Paroxysmal SVT (supraventricular tachycardia) Peripheral neuropathy Personal history of colonic polyps Scoliosis Segmental and somatic dysfunction of cervical region Segmental and somatic dysfunction of lumbar region Segmental and somatic dysfunction of thoracic region Type 2 diabetes mellitus Home Medications calcium polycarbophil 625 mg tablet 1,250 mg PO QDAY 12/02/17 [History Last Taken Unknown] omega-3 fatty acids 1,000 mg capsule 1,000 mg PO DAILY 02/26/19 [History Last Taken Unknown] omeprazole 40 mg capsule,delayed release 40 mg PO DAILY cap 12/09/20 [History Last Taken 12/14/20] cholecalciferol (vitamin D3) 25 mcg (1,000 unit) capsule 50 mcg PO DAILY cap 02/10/21 [History Last Taken Unknown] magnesium gluconate 27.5 mg magnesium (500 mg) tablet 27.5 mg PO DAILY tablet 02/10/21 [History Last Taken Unknown] psyllium husk 0.4 gram capsule 0.4 gm PO DAILY 02/10/21 [History Last Taken Unknown] vitamin B complex 1 tablet PO DAILY 02/10/21 [History Last Taken Unknown] cephalexin 500 mg PO Q6 #40 cap 10/29/21 [Rx Last Taken Unknown] Allergy/AdvReac Type Severity Reaction Status Date / Time theophylline Allergy Swelling Verified 10/29/21 20:44 fexofenadine [From Tomeka] AdvReac Other Verified 10/29/21 20:44 Family History Father Diabetes Kidney disease Heart disease Mother Diabetes Arthritis Thyroid disorder Brother Diabetes Sister Diabetes Arthritis Seizures Surgical History History of cardiac radiofrequency ablation (12/08/01) History of lumpectomy of left breast History of permanent cardiac pacemaker placement (12/14/20) History of tonsillectomy History of total right knee replacement History of tubal ligation Hx of colonoscopy Social History Smoking Status: Former smoker quit date: 12/17/79 how long ago did patient quit smokin12/17/1979 second hand exposure: No alcohol intake: current alcohol intake frequency: 0-2 drinks per day Alcohol type: beer and wine substance use type: does not use caffeine: Yes what type of physical activity do you participate in: walking, bicycling, aerobics and weight training frequency: 3-4 times per week duration: 15-30 minutes/day seatbelt use: always do you feel safe at home: Yes ROS ROS ED Constitutional Constitutional ED: Denies chills or fever(s) Eyes Eyes: Denies change in vision ENT ENT ED: Denies sore throat Cardiovascular Cardiovascular: Denies chest pain Respiratory/Chest Respiratory/Chest: Denies cough or dyspnea Gastrointestinal Gastrointestinal: Denies abdominal pain or vomiting Musculoskeletal Musculoskeletal: Reports other Details: Left lower leg pain ; Denies myalgias Integumentary Reports rash Neurologic Neurologic: Reports paresthesias and other Details: Neuropathy, chronic unchanged ; Denies headache(s) or weakness Psychiatric Psychiatric: Denies depression EXAM Physical Exam Const Vital Signs: 10/29/21 20:44 10/29/21 20:45 10/29/21 20:54 Temperature 97.5 F L 97.5 F L Temperature Source Temporal Temporal Pulse Rate 83 83 Respiratory Rate 16 16 Respiratory Effort Normal Non-Labored Respiratory Pattern Normal Blood Pressure 167/81 H 167/81 H Blood Pressure Mean 109 109 Pulse Ox 100 100 Positive well nourished and well developed General Appearance ED: well developed HEENT normocephalic and atraumatic Eyes PERRL Neck full ROM and supple Chest Wall inspection of chest normal Resp normal respiratory effort and clear to auscultation bilaterally Cardio regular rate, regular rhythm and no murmurs Cardio Narrative: 2+ bilateral DP pulses GI non-tender and non-distended Palpation: soft Extremity full ROM Extremity Narrative: No bony tenderness. No deformity of the joints. No palpable cords, calf swelling or pitting edema appreciated. No crepitus. Normal Torre test. General Extremety ED: Negative for edema General Extremity: Negative for edema Skin Skin Narrative: Patient has an irregular 4 cm x 3 cm area of erythema and warmth on the anterior distal left boothe. It is tender to palpation. No associated lymphangitic streaking. No induration. No fluctuance. MDM MDM MDM Narrative Medical decision making narrative: Patient is evaluated for 1 day of redness and pain of the left lower leg. Physical exam is concerning for early cellulitis. Patient be started on Keflex. X-ray does not show any acute underlying process. I do not suspect a DVT. No crepitus. I do not think she needs IV antibiotics at this time. She is overall well-appearing with normal vital signs. Counseled on return precautions. Given first dose of antibiotics in the emergency room. Radiography X-Ray: Read by ED Physician, Read by Radiologist, No Fracture and Normal Bony Alignment Diagnostic Testing: Clinical Impression(s) from Imaging Studies Ankle X-Ray 10/29/21 21:30 IMPRESSION: Calcaneal spurs, nonspecific lateral soft tissue swelling Electronically Signed: Patel Evans MD at 21:47 EST , Service support , Discharge Plan Triage Chief Complaint: Edema ED Provider: Cookie Andersen Dx/Rx/DC Orders Clinical Impression: Cellulitis of left anterior lower leg Instructions: ED Cellulitis Prescriptions: New cephalexin 500 mg capsule 500 mg PO Q6 Qty: 40 RF: 0 No Action calcium polycarbophil [Fiber (calcium polycarbophil)] 625 mg tablet 1,250 mg PO QDAY RF: 0 omega-3 fatty acids [Fish Oil Concentrate] 1,000 mg capsule 1,000 mg PO DAILY RF: 0 omeprazole 40 mg capsule,delayed release(DR/EC) 40 mg PO DAILY RF: 0 vitamin B complex [B Complex-Vitamin B12] Tablet 1 tablet PO DAILY RF: 0 cholecalciferol (vitamin D3) 25 mcg (1,000 unit) capsule 50 mcg PO DAILY RF: 0 magnesium gluconate 27.5 mg magne- sium (500 mg) tablet 27.5 mg PO DAILY RF: 0 psyllium husk [Metamucil] 0.4 gram capsule 0.4 gm PO DAILY RF: 0 Primary Care Provider: Richard Castillo Referrals: Richard Castillo DO [Primary Care Provider] - Disposition Disposition: Home, Self Care
--- NOTE | 2021-10-29 21:30 | RAD_ITS ---
EXAM: XR Left Tibia and Fibula, 2 Views CLINICAL INDICATION: 71 years old, Female; Injury/Pain TECHNIQUE: Frontal and lateral views of the left tibia and fibula. This report was created using [employer] report Click Contact technology. COMPARISON: None. FINDINGS: Bones/joints: Unremarkable. No acute fracture. No subluxation. Normal alignment. Preservation of the joint space. No sclerotic or destructive changes observed. Soft tissues: Soft tissue edema around the ankle. No radiopaque foreign body. RAD/Tibia & Fibula 2 Views IMPRESSION: Soft tissue edema around the ankle. Electronically Signed: Arben Deshpande MD at 22:26 EST Tel , Service support ,
--- NOTE | 2021-10-29 21:30 | RAD_ITS ---
STUDY: X-RAY - LEFT ANKLE REASON FOR EXAM: Female, 71 years old. Injury/Pain TECHNIQUE: 3 view(s) of the ankle. COMPARISON: None. FINDINGS: Normal visualized distal tibia and fibula. Normal medial and lateral malleoli. Normal tibiotalar articulation and ankle mortise. Normal visualized talus. Calcaneal spurs The visualized subtalar, talonavicular, calcaneocuboid and tarsal articulations are normal. Lateral soft tissue swelling RAD/Ankle min 3 Views IMPRESSION: Calcaneal spurs, nonspecific lateral soft tissue swelling Electronically Signed: Patel Evans MD at 21:47 EST , Service support ,
[2021-10-29] MEDS: Cephalexin 250 MG Capsule 500 MG PO (22:42)
--- NOTE | 2021-10-29 22:48 | ED.RN ---
pt in waiting room to wait for meds.
== END 2021-10-29 22:48 | disposition home or self-care (01) ==
PROVIDERS: Emergency Provider Emergency Medicine; PCP Student in an Organized Health Care Education/Training Program
DX: L03.116 Cellulitis of left lower limb (principal); M79.89 Other specified soft tissue disorders; E11.40 Type 2 diabetes mellitus with diabetic neuropathy, unspecified; I44.2 Atrioventricular block, complete; R13.10 Dysphagia, unspecified; M19.90 Unspecified osteoarthritis, unspecified site; K21.9 Gastro-esophageal reflux disease without esophagitis; Z86.16 Personal history of COVID-19; Z85.3 Personal history of malignant neoplasm of breast; Z87.19 Personal history of other diseases of the digestive system; Z87.891 Personal history of nicotine dependence; Z96.651 Presence of right artificial knee joint; Z95.0 Presence of cardiac pacemaker
CPT/HCPCS: 73590; 73610; 99283

== ENCOUNTER → 2024-04-21 | Outpatient (CLI) | payer MEDICARE, SELFPAY ==
--- NOTE | 2024-04-21 07:53 | ECHOD_ITS ---
Reason For Study: AFIB/FLUTTER Procedure This was a 2D Doppler, Color Flow transthoracic echocardiogram. Exam performed in department. Left Ventricle Normal left ventricle. Left ventricular systolic function is normal. The left ventricular ejection fraction is 60 %. Stage 1 diastolic dysfunction. No regional wall motion abnormalities noted. Right Ventricle Normal RV size. ICD or pacer leads identified within the right ventricle. Normal systolic function. Mitral Valve There is moderate to severe mitral annular calcification. Tricuspid Valve Normal tricuspid valve. Mild (1+) tricuspid valve insufficiency. Pulmonary artery systolic pressure is 30 mmHg. Aortic Valve Trisinus/trileaflet aortic valve. Pulmonic Valve Normal pulmonic valve. Great Vessels Normal aortic root. The pulmonary artery is normal size. Normal inferior vena cava. Pericardium/Pleural No pericardial effusion. MMode/2D Measurements & Calculations LVIDd: 3.9 cm IVSd: 1.4 cm Ao root diam: 3.3 cm LVIDs: 2.4 cm LVPWd: 1.0 cm RVDd: 3.2 cm FS: 37.7 % LAV(MOD-bp): 43.9 ml LVAd ap4: 27.7 cm2 SV(MOD-sp4): 49.5 ml LAV(MOD-bp) Indexed: 23.2 ml/m2 LVLd ap4: 7.4 cm LAV(MOD-sp2): 43.6 ml EDV(MOD-sp4): 85.2 ml LAV(MOD-sp4): 42.7 ml EDV(sp4-el): 87.6 ml LVAs ap4: 15.7 cm2 LVLs ap4: 6.1 cm ESV(MOD-sp4): 35.7 ml ESV(sp4-el): 34.5 ml EF(MOD-sp4): 58.1 % EF(sp4-el): 60.7 % SV(sp4-el): 53.1 ml LA dimension(2D): 4.2 cm LA A4 area: 15.5 cm2 RA A4 area: 11.9 cm2 TAPSE: 2.1 cm Time Measurements MV dec time: 0.28 sec Doppler Measurements & Calculations MV E max morgan: 78.1 cm/sec Lat Peak E' Morgan: 7.1 cm/sec Med Peak E' Morgan: 5.0 cm/sec MV A max morgan: 95.6 cm/sec E/E' lat: 11.0 E/E' med: 15.7 MV E/A: 0.82 MV V2 max: 109.4 cm/sec MV P1/2t max morgan: 83.4 cm/sec Ao V2 max: 84.2 cm/sec MV max P.8 mmHg MV P1/2t: 87.6 msec Ao max P.8 mmHg MV V2 mean: 53.0 cm/sec Ao V2 mean: 59.1 cm/sec MV mean P.4 mmHg MV dec slope: 279.0 cm/sec2 Ao mean P.6 mmHg MV V2 VTI: 32.1 cm MVA(P1/2t): 2.5 cm2 Ao V2 VTI: 21.6 cm AV (velocity ratio): 0.89 LV V1 max: 79.0 cm/sec PA V2 max: 91.8 cm/sec TR max morgan: 249.2 cm/sec LV V1 max P.5 mmHg PA V2 mean: 57.6 cm/sec TR max P.8 mmHg LV V1 mean P.5 mmHg LV V1 mean: 58.8 cm/sec LV V1 VTI: 19.2 cm ECHO/Echo Complete Interpretation Summary Normal left ventricle. Left ventricular systolic function is normal. The left ventricular ejection fraction is 60 %. Stage 1 diastolic dysfunction. Mild (1+) tricuspid valve insufficiency. Pulmonary artery systolic pressure is 30 mmHg. Ordering Physician: Kush Collins Referring Physician: Richard Castillo Performed By: Sofía Phillips, JENNIFERCS, RVT
== END | disposition home or self-care (01) ==
LOC: CVS 07:53
PROVIDERS: PCP Student in an Organized Health Care Education/Training Program; Referring Provider Internal Medicine Cardiovascular Disease; Visit Provider Internal Medicine Cardiovascular Disease
DX: I44.2 Atrioventricular block, complete (principal)
CPT/HCPCS: 93306

== ENCOUNTER → 2024-06-25 | Outpatient (CLI) | payer MEDICARE, SELFPAY ==
--- NOTE | 2024-06-25 10:27 | MRI_ITS ---
STUDY: MRI CERVICAL SPINE WITHOUT CONTRAST REASON FOR EXAM: Female, 73 years old. CERVICAL DISC DEGENERATION, CERVICAL; SP STENOSIS, CERVICAL TECHNIQUE: Standardized fat and water weighted pulse sequences were obtained in the sagittal and axial planes. COMPARISON: X-ray 05/08/2017 FINDINGS: Normal foramen magnum and brainstem-cervical cord junction. Normal craniovertebral junction. Normal anterior atlantoaxial articulation. Normal odontoid process. Normal cervical lordosis. Normal vertebral bodies and posterior osseous elements. C2-3: Mild right facet hypertrophy with ankylosis of facet joint. No spinal stenosis or neural foraminal stenosis. C3-4: Moderate facet hypertrophy produces mild right neural foraminal stenosis. No central spinal stenosis. C4-5: Normal endplates. Normal disc height, signal and morphology. Normal central canal and intervertebral neural foramina. C5-6: Moderate broad disc osteophyte complex producing moderate spinal stenosis with abutment central spinal cord and mild bilateral neural foraminal stenosis. C6-7: Mild broad disc osteophyte complex produces mild spinal stenosis and mild bilateral neural foraminal stenosis. C7-T1: Normal endplates. Normal disc height, signal and morphology. Normal central canal and intervertebral neural foramina. Normal cervical cord. Normal visualized soft tissue structures. MRI/Spine Cervical (Routine) IMPRESSION: Multilevel degenerative changes, as described above. Electronically Signed: Chase Skelton MD at 10:46 EDT ,
[2024-06-25 10:49] VITALS: BP 162/86; PULSE 61; RESP 14; O2SAT 99
[2024-06-25 11:04] VITALS: PULSE 80; RESP 16; O2SAT 95
[2024-06-25 11:20] VITALS: PULSE 80; RESP 16; O2SAT 94
[2024-06-25 11:30] VITALS: PULSE 80; RESP 16; O2SAT 94
[2024-06-25 11:40] VITALS: BP 130/73; PULSE 80; RESP 16; O2SAT 94
[2024-06-25 11:49] VITALS: BP 147/66; PULSE 60; RESP 16; O2SAT 95
== END | disposition home or self-care (01) ==
PROVIDERS: PCP Student in an Organized Health Care Education/Training Program; Referring Provider Orthopaedic Surgery; Visit Provider Orthopaedic Surgery
DX: M50.30 Other cervical disc degeneration, unspecified cervical region (principal); M48.02 Spinal stenosis, cervical region; M54.12 Radiculopathy, cervical region
CPT/HCPCS: 72141

== ENCOUNTER 2024-07-16 12:00 | Outpatient (RCR) | payer MEDICARE, SELFPAY ==
--- NOTE | 2024-06-11 12:56 | HP.PTEVAL_ITS ---
Patient's Visit Information Visit Information Visit Information: BETTY HAGER is a 73 year old F referred to Physical Therapy by TASHA GALE with a diagnosis of BPPV/vestibular. Date of Evaluation: 06/11/24 Physical Therapist: SCAR Underwood Visit Plan Frequency: 1-2x /Week Duration: 4 Weeks Plan: Check L Hallpike first and if negative test R. Look into VOR as well and recheck balance Subjective Subjective: Pt got off the plane in [facility] on 05-16 and violent case of vertigo and took an ambulance ride and they pumped her full of stuff and she went back to their hotel. She missed 3 days of 5 day trip. She made it home. When she got back here she saw her Dr but was on vacation and saw ashli morley and got her into PT on May 27 and they did the Eply manuver and it lasted 2 days and back to vertigo and then got a massage and it helped for a few days. Saw Dr Steele this morning and she was told not to tilt head to the L for 4 days or sleeping on L side. Dr Steele did the Eply and found out it was the L side. She has an order for PT. Objective Objective: FGA: 17 (did not have pt turn her head up and down due to just having Eply done a few hours ago by Dr Arlen Steele) CATSIB: 100 DID not evaluate R or L Hallpike due to Dr doing it this morning. Balance/Special Test Scores Functional Gait Assessment Score: 17 % Disability: 43.3400 CATSIB Score (Max score 120 seconds): 100 Dizziness Score: 36 Goals Goal 1:: I HEP Goal Time Frame: 2-4 Weeks Goal 2:: Abolish dizziness with turning in bed Goal Time Frame: 2-4 Weeks Goal 3:: Increase CATSIB score to 120/120 (at eval was 100) Goal Time Frame: 2-4 Weeks Goal 4:: Increase balance (FGA was 17 at eval) Goal Time Frame: 2-4 Weeks Rehabilitation Potential Rehabilitation Potential: Good Anticipated Interventions Patient/Client Instruction: Educate patient on: Condition and Plan of Care For the Purpose of:: To improve nutrient delivery to tissue, To increase oxygenation perfusion, To improve muscle performance and motor function, To improve ability to perform ADL's, To increase tolerance to activity/condition/position, To improve performance and independence with ADL's, To decrease level of supervision to perform tasks, To improve ability of physical actions for home/community/work/leisure, To improve gait and locomotor functions and To improve safety with gait Therapeutic Exercise to Include: Strength training, Balance training, Postural training, Neuromotor development, Passive ROM and Active ROM For the Purpose of:: To improve gait and locomotor functions Functional Training to Include: Gait training For the Purpose of:: To improve gait and locomotor functions and To improve safety with gait Manual Therapy Techniques to Include: Other Comment: EPLY For the Purpose of:: To improve gait and locomotor functions and To improve safety with gait Text: Thank you for the opportunity to evaluate your patient. For Medicare and Medicare HMO plans, please review the plan of care and approve it. It will need to be FAXED BACK to us at [phone] for Medicare purposes. For Medicare only, by signing this I certify the plan of care. Please let me know if there are questions or concerns regarding this plan of care. Physician Signature: Date:
--- NOTE | 2024-07-16 12:16 | HP.PTDCSUM ---
Discharge Summary D/C summary: It has been my pleasure to treat BETTY HAGER referred by TASHA GALE, with the diagnosis of BPPV/vestibular for a total of 7 visit(s). Discharge Date: 07/16/24 Please see the following information for a summary of their discharge status. Subjective Subjective: No dizzyness. rolling to side now with no porblems. It had been two months and finally better. Balance feels good. Life is back to normal. Overall Improvement % Improvement: 100 Objective Objective/Function: - B hallpike andrews adn - roll test. Goals Goal 1:: I HEP Goal Progress: Goal Met Goal 2:: Abolish dizziness with turning in bed Goal Progress: Goal Met Goal 3:: Increase CATSIB score to 120/120 (at eval was 100) Goal Progress: Goal Met Goal 4:: Increase balance (FGA was 17 at eval) Goal Progress: Goal Met Plan Plan: d/c D/C Information Discharge Comments: Stubborn case but eventually responded to positional and feeling 100% better today. d/c sentence: If there are questions or concerns regarding this patient's physical therapy, please feel free to call me at [phone]. Thank you for the referral of this patient. Sincerely, Kamari Schmitz, DPT, OCS, CSCS Balance/Gait/Functional tests Balance/Special Test Scores Functional Gait Assessment Score: 28 % Disability: 6.6700 CATSIB Score (Max score 120 seconds): 120 Dizziness Score: 0 Improvement % Improvement: 100
== END 2024-07-16 19:00 | disposition home or self-care (01) ==
LOC: PT 12:00
PROVIDERS: PCP Student in an Organized Health Care Education/Training Program; Referring Provider Clinical Nurse Specialist Adult Health; Visit Provider Clinical Nurse Specialist Adult Health
DX: H81.10 Benign paroxysmal vertigo, unspecified ear (principal); M50.30 Other cervical disc degeneration, unspecified cervical region; R04.0 Epistaxis; E11.42 Type 2 diabetes mellitus with diabetic polyneuropathy
CPT/HCPCS: 97110; 97161; 97530

== ENCOUNTER 2024-09-24 14:58 | Emergency (ER) | payer MEDICARE, SELFPAY ==
[2024-09-24 15:00] VITALS: BP 137/68; PULSE 69; RESP 15; TEMP 36.4; O2SAT 96; BMI 28.8
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
--- NOTE | 2024-09-24 16:03 | CT_ITS ---
STUDY: CT BRAIN WITHOUT CONTRAST REASON FOR EXAM: Female, 74 years old. Injury/Pain RADIATION DOSAGE (If Supplied By Facility): CTDIvol = ( 44.99 ) mGy, DLP = ( 796.11 ) mGycm TECHNIQUE: Transaxial CT imaging of the brain was performed without administration of intravenous contrast material. Individualized dose optimization techniques were used for this CT. COMPARISON: No relevant priors. FINDINGS: Normal soft tissue structures. Normal calvarium. Calcific plaquing of the cavernous carotids Normal size ventricles and extra-axial spaces for the patient''s age. Normal white matter tracts of the cerebral hemispheres. Normal basal ganglia and thalami. Normal brainstem. Normal cerebellum. There is no intracranial hemorrhage. There are no findings of an acute ischemic infarction. Normal visualized paranasal sinuses. Postsurgical changes of the orbits CT/Brain/Head without Contrast IMPRESSION: Mild atrophy and periventricular ischemic changes. No acute. Intracranial hemorrhage Electronically Signed: Filippo Braun MD at 16:36 EDT ,
--- NOTE | 2024-09-24 16:03 | CT_ITS ---
STUDY: CT CERVICAL SPINE WITHOUT CONTRAST REASON FOR EXAM: Female, 74 years old. Injury/Pain RADIATION DOSAGE (If Supplied By Facility): CTDIvol = ( 16.79 ) mGy, DLP = ( 279.83 ) mGycm TECHNIQUE: High resolution transaxial imaging was performed without contrast material. Sagittal and coronal images were reconstructed. Individualized dose optimization techniques were used for this CT. COMPARISON: MRI cervical spine June 25, 2024 FINDINGS: Normal craniovertebral junction. Normal anterior atlantoaxial articulation. Normal odontoid process. Normal cervical lordosis. Normal vertebral bodies and posterior osseous elements. C2-3: Normal endplates. Normal disc height and morphology. Normal central canal and intervertebral neuroforamina. C3-4: Normal endplates. Normal disc height and morphology. Normal central canal and intervertebral neuroforamina. C4-5: Grade 1 spondylolisthesis Normal endplates. Normal disc height and morphology. Normal central canal and intervertebral neuroforamina. C5-6: Narrowed disc space and endplate spurring. Mild narrowing of central canal and mild bilateral neural foraminal stenosis secondary to bony hypertrophy C6-7: Narrowed disc space and endplate spurring. Normal central canal. Mild bilateral neural foraminal encroachment secondary to bony hypertrophy C7-T1: Normal endplates. Normal disc height and morphology. Normal central canal and intervertebral neuroforamina. Normal visualized soft tissue structures. CT/Spine Cervical without Contras IMPRESSION: No evidence for acute fracture or subluxation. Mild spondylosis most severe at C5-6 and C6-7 Electronically Signed: Filippo Braun MD at 16:39 EDT ,
--- NOTE | 2024-09-24 16:03 | RAD_ITS ---
STUDY: X-RAY - THORACIC SPINE REASON FOR EXAM: Female, 74 years old. Injury/Pain TECHNIQUE: 3 view(s) of the thoracic spine were obtained. COMPARISON: None. FINDINGS: Normal kyphosis of the thoracic spine. There is mild to moderate dextro scoliosis. No evidence for acute fracture or subluxation. No lytic or sclerotic bony lesions There is multilevel disc space narrowing and endplate spurring The soft tissue structures are unremarkable. RAD/Thoracic Spine 3 Views IMPRESSION: Scoliosis and degenerative change. No acute fracture or subluxation. Electronically Signed: Filippo Braun MD at 16:40 EDT ,
[2024-09-24] MEDS: diazePAM 2 MG Tablet PO (16:07)
[2024-09-24 17:00] VITALS: BP 137/64; PULSE 64; RESP 16; O2SAT 96
[2024-09-24 17:13] VITALS: BP 138/62; PULSE 64; RESP 16; TEMP 36.6; O2SAT 96
== END 2024-09-24 17:14 | disposition home or self-care (01) ==
PROVIDERS: Emergency Provider Emergency Medicine; PCP Student in an Organized Health Care Education/Training Program; Visit Provider Emergency Medicine
DX: S16.1XXA Strain of muscle, fascia and tendon at neck level, initial encounter (principal); E11.42 Type 2 diabetes mellitus with diabetic polyneuropathy; S29.012A Strain of muscle and tendon of back wall of thorax, initial encounter; M62.830 Muscle spasm of back; S09.90XA Unspecified injury of head, initial encounter; V43.62XA Car passenger injured in collision with other type car in traffic accident, initial encounter; Z79.899 Other long term (current) drug therapy; Z87.891 Personal history of nicotine dependence; R42 Dizziness and giddiness
CPT/HCPCS: 70450; 72072; 72125; 99282

== ENCOUNTER → 2025-11-05 | Outpatient (CLI) | payer MEDICARE, SELFPAY ==
--- NOTE | 2025-11-05 10:49 | RAD_ITS ---
PROCEDURE: CHEST PA AND LATERAL 11/05/2025 REASON FOR EXAM: COUGH TECHNIQUE: Procedure Code: RADCXR Modality: DX Procedure: CHEST PA AND LATERAL COMPARISON: Prior study dated December 09, 2020. FINDINGS: Hardware: A left-sided dual-chamber pacemaker is seen. Heart: The heart is nonenlarged. Mediastinum: The mediastinal contour is unremarkable. Lungs: Lungs are clear. Bones: The bones are unremarkable. RAD/Chest PA and Lateral IMPRESSION: NO ACUTE FINDINGS. Reading Location: [place] [id number]
== END | disposition home or self-care (01) ==
LOC: MTRAD 10:49
PROVIDERS: PCP Student in an Organized Health Care Education/Training Program; Referring Provider Physician Assistant Surgical; Visit Provider Physician Assistant Surgical
DX: R05.9 Cough, unspecified (principal)
CPT/HCPCS: 71046